=== PATIENT | female | born 1965 | race American Indian/Alaskan Native ===

== ENCOUNTER → 2018-03-07 19:15 | Outpatient (REF) | payer MEDICAID, SELFPAY ==
[2018-03-07 19:32] LABS: Add Manual Diff / Slide Review NO; Eosinophils Percent Auto 4.7 % (2-4); Hematocrit 39.7 % (36-46); Hemoglobin 12.4 g/dL (12.0-16.0); Lymphocytes Percent Auto 27.8 % (25-40); Mean Corpuscular HGB Conc 31.1 % (30-36); Mean Corpuscular Hemoglobin 25.1 PG (26-34); Mean Corpuscular Volume 80.7 fL (80-100); Monocytes Percent Auto 5.5 % (3-14); Neutrophils Absolute Auto 5800 /uL (1500-7000); Platelet Count 376 X10^3/uL (150-400); Red Blood Cell Count 4.92 X10^6/uL (4.0-5.2); Red Cell Distribution Width 14.8 % (11.6-14.8); White Blood Cell Count 9.5 X10^3/uL (4.5-11.0)
[2018-03-07 19:50] LABS: Alanine Aminotransferase 17 IU/L (9-52); Albumin 4.3 g/dL (3.5-5.0); Albumin Globulin Ratio 1.1 (1.0-2.8); Alkaline Phosphatase 122 U/L (38-126); Aspartate Aminotransferase 26 IU/L (14-36); BUN Creatinine Ratio 17.5 (6-22); Bilirubin Total 0.4 mg/dL (0.2-1.3); Blood Urea Nitrogen 14 mg/dL (7-17); Calcium 9.3 mg/dL (8.4-10.2); Carbon Dioxide 25 mmol/L (22-32); Chloride 104 mmol/L (98-107); Cholesterol 203 mg/dL (140-199); Estimated Glomerular Filt Rate > 60.0 mL/min (>60); Globulin 3.8 g/dL (1.7-4.1); Glucose 197 mg/dL (70-100); HDL Cholesterol 52 mg/dL (40-60); HEMOLYSIS < 15 (0-50); LDL Cholesterol Calculated 132 mg/dL (<100); Potassium 4.6 mmol/L (3.4-5.1); Sodium 140 mmol/L (137-145); Total Protein 8.1 g/dL (6.3-8.2); Triglycerides 94 mg/dL (35-150)
[2018-03-07 19:51] LABS: Hemoglobin A1C% w Est Avg Glu 8.5 % (4.0-6.0)
[2018-03-07 20:13] LABS: Thyroid Stimulating Hormone 1.31 uIU/mL (0.47-4.68)
[2018-03-07 20:57] LABS: Folate 15.8 ng/mL (2.76-20.0); Vitamin B12 462 pg/mL (239-931)
== END ==
LOC: LAB 19:15
PROVIDERS: PCP Physician Assistant; Visit Provider Nurse Practitioner Acute Care
DX: R53.83 Other fatigue (principal); R53.81 Other malaise; E04.9 Nontoxic goiter, unspecified; E10.9 Type 1 diabetes mellitus without complications; E88.81 Metabolic syndrome and other insulin resistance; R06.02 Shortness of breath
CPT/HCPCS: 80053; 80061; 82607; 82746; 83036; 84443; 85025

== ENCOUNTER 2019-02-13 22:46 | Emergency (ER) | payer MEDICAID, SELFPAY ==
[2019-02-13 22:55] VITALS: BP 154/63; PULSE 95; RESP 16; TEMP 36.6; O2SAT 100; BMI 32.9
--- NOTE | 2019-02-13 22:58 | DI.RAD.S_ITS ---
PROCEDURE: XR SHOULDER LT MIN 2V INDICATIONS: left shoulder Pain with movement after fall TECHNIQUE: 3 views of the shoulder were acquired. COMPARISON: None. FINDINGS: Bones: No fractures or dislocations. There is mild acromioclavicular joint degeneration. No suspicious bony lesions. Visualized ribs appear intact. Soft tissues: No suspicious soft tissue calcifications. No evidence of pneumothorax in the visualized left hemithorax. IMPRESSION: 1. No fracture or dislocation. Dictated by: Jefry Chilel M.D. on 02/14/2019 at 9:26 Approved by: Jefry Chilel M.D. on 02/14/2019 at 9:27
--- NOTE | 2019-02-13 23:28 | ED.UPPEXIN ---
HPI - Extremity Injury (Upper) General Chief Complaint: Extremity Injury, Upper Stated Complaint: lt shoulder injury s/p fall Time Seen by Provider: 02/13/19 23:01 Source: patient Mode of arrival: Family Vehicle Limitations: no limitations History of Present Illness HPI narrative: Patient is a 54-year-old female who presents with left shoulder pain. She says that she tripped and fell over the garbage bag she did not hit her head or lose consciousness. She has felt like she heard something pull. It hurts whenever she lifts up her left arm. She is able to move her hands but she does feel like she has some numbness tingling. She points to her axilla area. She denies any chest pain or shortness of breath. MD complaint: injury to: left and shoulder Onset (ago): minute(s) Related Data Previous Rx's Medication Instructions Recorded alprazolam 0.25 mg PO Q8HP PRN #14 tab 12/16/15 Allergies Allergy/AdvReac Type Severity Reaction Status Date / Time aspirin [ASPIRIN] Allergy Unknown Unverified 06/08/17 13:02 codeine [CODEINE] Allergy Unknown Unverified 06/08/17 13:02 ketorolac [KETOROLAC] Allergy Unknown Unverified 06/08/17 13:02 morphine [MORPHINE] Allergy Unknown Unverified 06/08/17 13:02 oxycodone [OXYCODONE] Allergy Unknown Unverified 06/08/17 13:02 propoxyphene [PROPOXYPHENE] Allergy Unknown Unverified 06/08/17 13:02 Sulfa (Sulfonamide Allergy Unknown Unverified 06/08/17 13:02 Antibiotics) [SULFA (SULFONAMIDE ANTIBIOTICS)] Review of Systems Review of Systems Narrative: GENERAL: Denies chills,fever HEENT: Denies throat pain RESPIRATORY: Denies dyspnea, cough, wheezing CARDIOVASCULAR: Denies chest pain, palpitations GASTROINTESTINAL: Denies nausea, vomiting MUSCULOSKELETAL: See HPI SKIN: No rash, no laceration, no pruritus NEUROLOGIC: Denies weakness, dizziness, headache, numbness 8 point review of systems is negative except for those stated above and HPI Patient History Medical History Anxiety (Acute) Social History (Reviewed 02/13/19 @ 23:43 by JANETTE Martinez Smoking Status: Current some day smoker Smoking Status: Current some day smoker alcohol intake frequency: a few times a week Substance Use Type: former substance user Exam Initial Vital Signs Initial Vital Signs: Vital Signs Temperature 97.9 F 02/13/19 22:55 Pulse Rate 95 H 02/13/19 22:55 Respiratory Rate 16 02/13/19 22:55 Blood Pressure 154/63 H 02/13/19 22:55 Pulse Oximetry 100 02/13/19 22:55 GENERAL: Well-appearing, well-nourished and in no acute distress. HEENT: Head atraumatic,EOMI, pupils reactive, neck is supple no vertebral tenderness or step-off CARDIOVASCULAR: Regular rate and rhythm without murmurs, rubs or gallops. RESPIRATORY: Breath sounds equal bilaterally, no wheezes rales or rhonchi. EXTREMITIES: Normal range of motion, no clubbing or edema. Neurovascularly intact Left upper ex. tenderness or deformity head pain or deformity sensation over deltoid intact. 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 Cranial nerves II through XII grossly intact. SKIN: Warm, dry, no laceration, no petechiae, no rashes or lesions. Course Orders Ordered: ED Orders 02/13/19 22:58 XR shoulder LT min 2V Stat Discontinued Medications Acetaminophen (Tylenol) 975 mg PO NOW ONE Stop: 02/13/19 23:38 Last Admin: 02/13/19 23:43 Dose: 975 mg Documented by: BENJAMIN Vital Signs Vital signs: Vital Signs - 8 hr 02/13/19 22:55 02/13/19 23:58 Temperature 97.9 F Pulse Rate 95 H 82 Respiratory Rate 16 16 Blood Pressure 154/63 H 112/72 Pulse Oximetry 100 100 MDM - Extremity Injury (Upper) Imaging Data left shoulder: Attestation: I personally reviewed and interpreted this imaging study as follows: My impression: No fracture, no rib fracture, no pneumothorax Discharge Plan Departure Patient Disposition: Home Clinical Impression: Sprain of left shoulder Qualifiers: Encounter type: initial encounter Shoulder sprain type: unspecified sprain Qualified Code(s): S43.402A - Unspecified sprain of left shoulder joint, initial encounter Discharge Date/Time: 02/13/19 23:58 Instructions: DI for Shoulder Sprain Activity Restrictions/Additional Instructions: *You have been diagnosed with left shoulder strain *What to do: Recommend heat or ice increased movement as tolerated no broken bones are identified *Continue to take medications as directed Tylenol 1000 mg every 6 hours if needed for [id number] pain *Follow up with your primary care provider in 2-3 days *Return to ER if you should have increased pain, numbness, tingling, weakness or any new, worsening or concerning symptoms Prescriptions: No Action alprazolam 0.25 MG tablet 0.25 mg PO Q8HP PRNQty: 14 RF: 0 Referrals: Neha Niño PA-C [Primary Care Provider] -
[2019-02-13] MEDS: ACETAMINOPHEN 325 MG TABLET 975 MG PO (23:43)
[2019-02-13 23:58] VITALS: BP 112/72; PULSE 82; RESP 16; O2SAT 100
== END 2019-02-13 23:58 | disposition home or self-care (01) ==
PROVIDERS: Emergency Provider Emergency Medicine; Family Provider Physician Assistant; PCP Physician Assistant
DX: S43.402A Unspecified sprain of left shoulder joint, initial encounter (principal); W01.0XXA Fall on same level from slipping, tripping and stumbling without subsequent striking against object, initial encounter
CPT/HCPCS: 73030; 99283

== ENCOUNTER 2019-04-07 21:39 | Emergency (ER) | payer MEDICAID, SELFPAY ==
[2019-04-07 21:59] VITALS: BP 174/87; PULSE 98; RESP 18; TEMP 36.7; O2SAT 99; BMI 32.9
--- NOTE | 2019-04-07 22:28 | PC.NURSE ---
reports normal urine and stool patterns and quailty
--- NOTE | 2019-04-07 22:33 | DI.CT.S_ITS ---
PROCEDURE: CT ABDOMEN PELVIS WO CON INDICATIONS: LLQ pain h/o kidney stones TECHNIQUE: Noncontrast 5 mm thick sections acquired from the diaphragms to the symphysis. 5 mm coronal and sagittal reformats were then performed. For radiation dose reduction, the following was used: automated exposure control, adjustment of mA and/or kV according to patient size. COMPARISON: [facility], CT, ABD/PELVIS W/CON (PN), 06/06/2010, 11:53. [facility], CT, KUB - CT ([facility] 10/05/2008, 21:47. FINDINGS: Image quality: Excellent. ABDOMEN: Lung bases: Lung bases are clear. Minimal atelectasis within the posterior right costophrenic angle appears to be present. Heart size is normal. Solid organs: Liver is normal in size. Gallbladder is surgically absent. Pancreas is normal in contours. Spleen is normal in size. No adrenal nodules. There is a punctate (2 mm) calculus evident involving the mid to inferior pole of the right kidney in the superior pole of the right kidney. No hydronephrosis is evident. No hydroureter is identified. No definite ureteral calculi are appreciated. Peritoneum and bowel: Unenhanced bowel loops demonstrate normal wall thickness and caliber. No free fluid or air. Likely fluid collections are evident. Moderate residual stool seen within the colon. The appendix is well-visualized and normal. Nodes and vessels: No retroperitoneal or mesenteric adenopathy by size criteria. Aorta and inferior vena cava are normal in caliber. Bones: No acute fractures or suspicious osseous lesions is identified. A compression deformity involving the L2 vertebral body probably is unchanged, given differences in imaging technique. Prominent degenerative changes of the lumbar spine are evident primarily involving the facet joints. PELVIS: Genitourinary: Bladder wall thickness is normal. The uterus and ovaries are not adequately characterized on CT, but do not appear to be significantly enlarged. Miscellaneous: No inguinal hernias or adenopathy. No free fluid or loculated fluid collection is identified within the pelvis. Bones: No suspicious bony lesions. No acute pelvic fractures are evident. Postoperative versus post traumatic changes involving the posterior right iliac bone are evident. IMPRESSION: 1. No acute abnormality within the abdomen or pelvis. 2. Nonobstructing right renal calculi. No hydronephrosis or ureteral calculi. 3. Possible constipation. No bowel obstruction. Note: The preliminary report provided by [facility] is concordant with the final report. Dictated by: Chris Klein M.D. on 04/08/2019 at 8:37 Approved by: Chris Klein M.D. on 04/08/2019 at 8:41
[2019-04-07] MEDS: KETOROLAC 60 MG/2 ML VIAL 30 MG IV (22:47)
[2019-04-07] MEDS: SODIUM CHLORIDE 0.9% 1,000 ML 1000 ML IV (22:47)
[2019-04-07] MEDS: ONDANSETRON 4 MG/2 ML INJ IV (22:47)
[2019-04-07 22:49] LABS: Add Manual Diff / Slide Review NO; Basophils Absolute Auto 100 /uL (0-100); Basophils Percent Auto 1.5 % (0-2); Eosinophils Absolute Auto 500 /uL (0-450); Eosinophils Percent Auto 4.7 % (2-4); Hemoglobin 11.9 g/dL (12.0-16.0); Lymphocytes Absolute Auto 2500 /uL (1100-4500); Lymphocytes Percent Auto 25.9 % (25-40); Mean Corpuscular HGB Conc 33.1 % (30-36); Mean Corpuscular Hemoglobin 26.1 PG (26-34); Mean Corpuscular Volume 78.9 fL (80-100); Monocytes Absolute Auto 600 /uL (0-900); Monocytes Percent Auto 6.5 % (3-14); Neutrophils Absolute Auto 5900 /uL (1500-7000); Neutrophils Percent Auto 61.4 % (50-75); Platelet Count 293 X10^3/uL (150-400); Red Blood Cell Count 4.57 X10^6/uL (4.0-5.2); Red Cell Distribution Width 15.4 % (11.6-14.8); White Blood Cell Count 9.7 X10^3/uL (4.5-11.0)
[2019-04-07 22:56] LABS: Alanine Aminotransferase 11 IU/L (<35); Albumin 3.9 g/dL (3.5-5.0); Albumin Globulin Ratio 1.1 (1.0-2.8); Alkaline Phosphatase 115 U/L (38-126); Aspartate Aminotransferase 31 IU/L (14-36); BUN Creatinine Ratio 13.8 (6-22); Bilirubin Total 0.4 mg/dL (0.2-1.3); Blood Urea Nitrogen 11 mg/dL (7-17); Calcium 8.9 mg/dL (8.4-10.2); Carbon Dioxide 25 mmol/L (22-32); Chloride 102 mmol/L (98-107); Estimated Glomerular Filt Rate > 60.0 mL/min (>60); Globulin 3.6 g/dL (1.7-4.1); Glucose 346 mg/dL (70-100); Lipase 96 U/L (23-300); Sodium 136 mmol/L (137-145); Total Protein 7.5 g/dL (6.3-8.2)
[2019-04-07 22:57] LABS: HEMOLYSIS 97 (0-50); Potassium 4.6 mmol/L (3.4-5.1)
[2019-04-07] MEDS: diphenhydrAMINE 50 MG/ML VIAL 25 MG IV (23:15)
--- NOTE | 2019-04-08 00:01 | ED.ABDPAIN ---
HPI - Abdominal Pain General Chief Complaint: Abdominal Pain Stated Complaint: left side abdominal pain. thinks ulcers Time Seen by Provider: 04/07/19 22:20 Source: patient Mode of arrival: Ambulatory Limitations: no limitations History of Present Illness HPI narrative: Chief complaint: Left lower quadrant abdominal pain History of present illness: The patient is a 54-year-old female who presents to the emergency department after she states that she woke up with left lower quadrant hip abdominal pain. She points to the area of her left inguinal ligament. She states that the pain is sharp in intermittent. She cannot state whether or not it is crampy or worse with movement. She admits that she has had a history of kidney stones in the past but has noted no change in her bowel movements. Bowel movements have been normal without any blood melena. She has had no diarrhea. She denies a history of Crohn's disease ulcerative colitis irritable bowel syndrome or diverticulosis diverticulitis. She denies any fall or injury. She has had no significant nausea vomiting. She has had no dysuria pyuria frequency or blood in her urine. She states that she had a kidney stone years ago. The pain and discomfort is 7 to 9/10 in intensity. She denies any back pain. The pain does not radiate or move. She admits to a history of asthma and diabetes but has not had any hypertension congestive heart failure myocardial infarction. Related Data Previous Rx's Medication Instructions Recorded alprazolam 0.25 mg PO Q8HP PRN #14 tab 12/16/15 dicyclomine 20 mg PO QID PRN #20 tab 04/08/19 Allergies Allergy/AdvReac Type Severity Reaction Status Date / Time aspirin [ASPIRIN] Allergy Unknown Verified 04/07/19 21:59 codeine [CODEINE] Allergy Unknown Verified 04/07/19 21:59 ketorolac [KETOROLAC] Allergy Unknown Verified 04/07/19 21:59 morphine [MORPHINE] Allergy Unknown Verified 04/07/19 21:59 oxycodone [OXYCODONE] Allergy Unknown Verified 04/07/19 21:59 propoxyphene [PROPOXYPHENE] Allergy Unknown Verified 04/07/19 21:59 Sulfa (Sulfonamide Allergy Unknown Verified 04/07/19 21:59 Antibiotics) [SULFA (SULFONAMIDE ANTIBIOTICS)] Review of Systems Review of Systems ROS Unobtainable: All systems reviewed & are unremarkable except as noted in HPI and below Patient History Medical History Anxiety (Acute) Social History Smoking Status: Former smoker Smoking Status: Former smoker alcohol intake frequency: a few times a week Substance Use Type: former substance user Exam Narrative Exam Narrative: PHYSICAL EXAM: CONSTITUTIONAL: Awake, Alert, Oriented, Coherent, Cooperative in mild distress. The patient appears to be uncomfortable rubbing her left lower quadrant and inguinal area.. Does not appear toxic or ill. HEAD: AT/NC EENT: PERRL, FROM of eyes, no discharge, Oral mucosa is moist and pink, posterior pharynx is without erythema or exudate. NECK: Supple, no obvious JVD, Trachea is midline without stridor, no palpable LN or masses. SPINE: No gross deformity, no palpable tenderness of the cervical, thoracic, lumbar or sacral spine. No CVA tenderness. THORAX: No deformity, retractions, chest wall tenderness, subcutaneous air or crepitice. LUNGS: Clear with symmetrical breath sounds without respiratory distress HEART: Normal heart tones, regular rhythm and rate without murmur. ABDOMEN: Her abdomen is soft with normal bowel sounds. Left lower quadrant is diffusely tender with no significant guarding rebound or rigidity. There is no palpable tenderness over the inguinal ligament nor any palpable hernias or weakness in the abdominal wall. EXTREMITIES: No edema, cyanosis, deformity or tenderness. SKIN: No rash, bruising, petechiae or purpura. NEURO: Awake, alert, oriented, conversive, cranial nerves II-XII are symmetrical and normal, moves all 4 extremities and is ambulatory Initial Vital Signs Initial Vital Signs: Vital Signs Temperature 98.1 F 04/07/19 21:59 Pulse Rate 98 H 04/07/19 21:59 Respiratory Rate 18 04/07/19 21:59 Blood Pressure 174/87 H 04/07/19 21:59 Pulse Oximetry 99 04/07/19 21:59 Course Course Course Narrative: The patient's CT scan obtained at 11:43 p.m. reveals a nonobstructing 1 mm right renal stone x2. The patient has status post cholecystectomy abdominal solid organs otherwise look unremarkable there is moderate stool appendix is normal uterus and ovaries are unremarkable. There is no intra-abdominal or pelvic pathology present. 0100 the patients urinalysis is negative for any signs of infection. Her CBC electrolytes and liver function tests are within normal limits. Her glucose is elevated at 346. The patient will be administered arm insulin IV and will then be discharged home after rechecking her you blood sugar. The patient continued to complain of persistent pain and discomfort. The and morning physical exam findings. I question with the patient's past history whether not she may have a drug-seeking behavior. Orders Ordered: Discontinued Medications Dicyclomine HCl (Bentyl) 20 mg PO NOW ONE Stop: 04/08/19 01:10 Last Admin: 04/08/19 02:00 Dose: 20 mg Documented by: KANA Diphenhydramine HCl (Benadryl) 25 mg IV NOW ONE Stop: 04/07/19 23:07 Last Admin: 04/07/19 23:15 Dose: 25 mg Documented by: ANIBAL Diphenhydramine HCl (Benadryl) 25 mg IV NOW ONE Stop: 04/08/19 00:04 Last Admin: 04/08/19 00:20 Dose: 25 mg Documented by: KANA Hydromorphone HCl (Dilaudid) 0.5 mg IV NOW ONE Stop: 04/08/19 00:04 Last Admin: 04/08/19 00:20 Dose: 0.5 mg Documented by: KANA Sodium Chloride (Normal Saline 0.9%) 1,000 mls @ 1,000 mls/hr IV BOLUS ONE Stop: 04/07/19 23:32 Last Infusion: 04/08/19 00:20 Dose: 0 mls/hr Documented by: Admin: 04/07/19 22:47 Dose: 1,000 mls/hr Documented by: KANA Insulin Human Regular (Humulin R) 10 unit IV NOW ONE Stop: 04/08/19 01:05 Last Admin: 04/08/19 02:03 Dose: 10 unit Documented by: KANA Cosigned by: CHAD Ketorolac Tromethamine (Toradol) 30 mg IV NOW ONE Stop: 04/07/19 22:34 Last Admin: 04/07/19 22:47 Dose: 30 mg Documented by: KANA Ondansetron HCl (Zofran) 4 mg IV NOW ONE Stop: 04/07/19 22:34 Last Admin: 04/07/19 22:47 Dose: 4 mg Documented by: KANA Vital Signs Vital signs: Vital Signs - 8 hr 04/07/19 21:59 Temperature 98.1 F Pulse Rate 98 H Respiratory Rate 18 Blood Pressure 174/87 H Pulse Oximetry 99 MDM - Abdominal Pain Medical Records Attestation: I reviewed the patient's medical records. Lab Data Attestation: I reviewed the patient's lab results. Result diagrams: 04/07/19 22:40 04/07/19 22:40 Labs: Lab Results 04/07/19 04/07/19 Range/Units 22:40 22:40 WBC 9.7 (4.5-11.0) X10^3/uL RBC 4.57 (4.0-5.2) X10^6/uL Hgb 11.9 L (12.0-16.0) g/dL Hct 36.0 (36-46) % MCV 78.9 L (80-100) fL MCH 26.1 (26-34) PG MCHC 33.1 (30-36) % RDW 15.4 H (11.6-14.8) % Plt Count 293 (150-400) X10^3/uL Neut % (Auto) 61.4 (50-75) % Lymph % (Auto) 25.9 (25-40) % Caswell % (Auto) 6.5 (3-14) % Eos % (Auto) 4.7 H (2-4) % Baso % (Auto) 1.5 (0-2) % Neut # (Auto) 5900 (4040-7899) /uL Lymph # (Auto) 2500 (0728-9741) /uL Caswell # (Auto) 600 (0-900) /uL Eos # (Auto) 500 H (0-450) /uL Baso # (Auto) 100 (0-100) /uL Sodium 136 L (137-145) mmol/L Potassium 4.6 (3.4-5.1) mmol/L Chloride 102 (98-107) mmol/L Carbon Dioxide 25 (22-32) mmol/L BUN 11 (7-17) mg/dL Creatinine 0.80 (0.52-1.04) mg/dL Estimated GFR > 60.0 (>60) mL/min BUN/Creatinine Ratio 13.8 (6-22) Glucose 346 H (70-100) mg/dL Calcium 8.9 (8.4-10.2) mg/dL Total Bilirubin 0.4 (0.2-1.3) mg/dL AST 31 (14-36) IU/L ALT 11 (<35) IU/L Alkaline Phosphatase 115 (38-126) U/L Total Protein 7.5 (6.3-8.2) g/dL Albumin 3.9 (3.5-5.0) g/dL Globulin 3.6 (1.7-4.1) g/dL Albumin/Globulin Ratio 1.1 (1.0-2.8) Lipase 96 (23-300) U/L Point of care testing: Point of Care Testing Glucose POC 180 Urine Dip Bedside Urine Glucose 1000 mg/dl Bedside Urine Bilirubin - Negative Bedside Urine Ketone - Negative Urine Specific Jarrell 1.015 Bedside Urine Occult Blood - Negative Bedside Urine pH 6.5 Bedside Urine Protein - Negative Bedside Urine Urobilinogen +/- 1mg Bedside Urine Nitrite - Negative Bedside Urine Leukocytes - Negative Esterase Discharge Plan Departure Patient Disposition: Home Clinical Impression: Hyperglycemia Constipation Qualifiers: Constipation type: unspecified constipation type Qualified Code(s): K59.00 - Constipation, unspecified Abdominal pain Qualifiers: Abdominal location: left lower quadrant Qualified Code(s): R10.32 - Left lower quadrant pain Discharge Date/Time: 04/08/19 04:09 Instructions: DI for Abdominal Pain-Adult, DI for Constipation Activity Restrictions/Additional Instructions: Drink 2-3 L of fluid per day. Use MiraLax for your constipation and abdominal pain. For pain and discomfort use Bentyl 20 mg capsules every 8 hours as needed for discomfort. Return if you develop worsening pain fever chills or sweats. Your CT scan was negative for any intra-abdominal or pelvic abnormalities. He had you did not have any obstructing stones in your ureter. The CT scan did reveal that she had moderate stool that is consistent with probable mild constipation. Prescriptions: New dicyclomine 20 mg tablet 20 mg PO QID PRN (Reason: abdominal pain and cramps) Qty: 20 RF: 0 No Action alprazolam 0.25 MG tablet 0.25 mg PO Q8HP PRNQty: 14 RF: 0 Referrals: Neha Niño PA-C [Primary Care Provider] -
[2019-04-08] MEDS: diphenhydrAMINE 50 MG/ML VIAL 25 MG IV (00:20)
[2019-04-08] MEDS: HYDROMORPHONE 0.5 MG INJ IV (00:20)
[2019-04-08] MEDS: DICYCLOMINE 10 MG CAPSULE 20 MG PO (02:00)
[2019-04-08 02:01] VITALS: BP 132/67; PULSE 88; RESP 17; O2SAT 98
[2019-04-08] MEDS: INSULIN REGULAR 100 UNIT/ML 3 ML VIAL 10 UNIT IV (02:03)
[2019-04-08 03:48] VITALS: BP 132/67; PULSE 82; RESP 20; O2SAT 98
== END 2019-04-08 04:09 | disposition home or self-care (01) ==
PROVIDERS: Emergency Provider Emergency Medicine; Family Provider Physician Assistant; PCP Physician Assistant
DX: R10.32 Left lower quadrant pain (principal); K59.00 Constipation, unspecified; E11.65 Type 2 diabetes mellitus with hyperglycemia
CPT/HCPCS: 36415; 74176; 80053; 81003; 82962; 83690; 85025; 96361; 96374; 96375; 96376; 99284; J1170; J1200; J1885; J2405

== ENCOUNTER → 2023-11-25 15:23 | Outpatient (CLI) | payer MEDICAID, SELFPAY ==
--- NOTE | 2023-11-25 15:29 | DI.RAD.S_ITS ---
PROCEDURE: XR LUMBAR SPINE 2-3V INDICATIONS: LUMBAGO TECHNIQUE: 3 views of the lumbar spine were acquired. COMPARISON: None. FINDINGS: Lumbar spine curvature and alignment: Mild leftward curve appreciated. Grade 1 L5-S1 spondylolisthesis due to degenerate facet disease appreciated. Bones: There are no osseous abnormalities. Disc spaces: Moderate L1-2 L2-3 L3-4 and L5-S1 degenerative disc disease noted. There is moderate L4-5 and L5-S1 degenerative facet disease. Intervertebral foramen: Grossly normal in width. Soft tissues: No soft tissue swelling, calcification or mass. IMPRESSION: Degeneration. Dictated by: Moi Salter M.D. on 11/28/2023 at 8:44 Approved by: Moi Salter M.D. on 11/28/2023 at 8:45
--- NOTE | 2023-11-25 15:29 | DI.RAD.S_ITS ---
PROCEDURE: XR THORACIC SPINE 2V INDICATIONS: LUMBAGO TECHNIQUE: 3 views of the thoracic spine were acquired. COMPARISON: [facility], CR, XR LUMBAR SPINE 2-3V, 11/25/2023, 15:45. FINDINGS: Thoracic spine curvature and alignment: Normal. Bones: Minimal chronic wedging of the T8, T9-T10 T11 vertebral bodies noted. Disc spaces: Moderate degenerative disc disease seen throughout the mid lower thoracic spine. Intervertebral foramen: Grossly normal in width. Soft tissues: No soft tissue swelling, calcification or mass. IMPRESSION: Moderate degenerative disc disease mid lower thoracic spine. Mild chronic wedging of the T8 through T11 vertebral bodies. Consider DEXA scanning to evaluate for osteoporosis Dictated by: Moi Salter M.D. on 11/28/2023 at 8:39 Approved by: Moi Salter M.D. on 11/28/2023 at 8:41
== END ==
PROVIDERS: Family Provider Physician Assistant; PCP Physician Assistant; Referring Provider Nurse Practitioner Family; Visit Provider Nurse Practitioner Family
DX: M51.34 Other intervertebral disc degeneration, thoracic region (principal); M48.54XA Collapsed vertebra, not elsewhere classified, thoracic region, initial encounter for fracture; M51.16 Intervertebral disc disorders with radiculopathy, lumbar region; M51.17 Intervertebral disc disorders with radiculopathy, lumbosacral region; M47.26 Other spondylosis with radiculopathy, lumbar region; M47.27 Other spondylosis with radiculopathy, lumbosacral region; M43.17 Spondylolisthesis, lumbosacral region; G89.29 Other chronic pain
CPT/HCPCS: 72070; 72100

== ENCOUNTER → 2025-01-29 14:12 | Outpatient (CLI) | payer MEDICAID, SELFPAY | LOC: RESP 14:13 | PROVIDERS: Family Provider Physician Assistant; PCP Nurse Practitioner Family; Referring Provider Student in an Organized Health Care Education/Training Program; Visit Provider Student in an Organized Health Care Education/Training Program | DX: R06.02 Shortness of breath (principal); F17.210 Nicotine dependence, cigarettes, uncomplicated | CPT/HCPCS: 94060; 94726; 94729 ==

== ENCOUNTER → 2025-01-29 15:02 | Outpatient (CLI) | payer MEDICAID, SELFPAY ==
[2025-01-29 15:31] LABS: Add Manual Diff / Slide Review NO; Hematocrit 41.9 % (36-46); Hemoglobin 13.6 g/dL (12.0-16.0); Lymphocytes Absolute Auto 2500 /uL (1100-4500); Mean Corpuscular HGB Conc 32.5 % (30-36); Mean Corpuscular Hemoglobin 26.7 PG (26-34); Mean Corpuscular Volume 82.1 fL (80-100); Platelet Count 376 X10^3/uL (150-400)
== END ==
PROVIDERS: Family Provider Physician Assistant; PCP Nurse Practitioner Family; Referring Provider Student in an Organized Health Care Education/Training Program; Visit Provider Student in an Organized Health Care Education/Training Program
DX: J45.40 Moderate persistent asthma, uncomplicated (principal)
CPT/HCPCS: 36415; 82785; 85025; 86003; 94060; 94726; 94729